=== PATIENT | female | born 1955 | race Asian ===

== ENCOUNTER 2022-08-04 17:51 | Inpatient (IN) | payer MEDICARE, OTHER ==
[~2022-08-04] VITALS: Ht 167.6 cm; Wt 90.1 kg
[~2022-08-04 17:51] MED LIST: GABA-1216 PO; LANS30CA55 PO; METO50 PO; SIMV-259 PO; WARF3TAB8 PO
[2022-08-04] MEDS ORDERED: ACETAMINOPHEN 325 MG TABLET PO ONE (18:15)
[2022-08-04 20:30] LABS: BASOPHILS % (AUTO) 0.4 % (0.0-2.0); EOSINOPHILS % (AUTO) 0.2 % (1.0-6.0); HEMATOCRIT 41.8 % (36-46); HEMOGLOBIN 13.6 g/dL (12.0-16.0); LYMPHOCYTES # (AUTO) 1.1 K/uL (1.0-4.8); LYMPHOCYTES % (AUTO) 8.3 % (22.0-44.0); MEAN CORPUSCULAR HEMOGLOBIN 28.8 pg (26.0-34.0); MEAN CORPUSCULAR HGB CONC 32.6 G/dL (31.0-37.0); MEAN CORPUSCULAR VOLUME 88 fL (80-100); MONOCYTES # (AUTO) 0.6 K/uL (0.1-1.0); MONOCYTES % (AUTO) 4.5 % (2.0-9.0); NEUTROPHILS # (AUTO) 11.3 K/uL (1.8-7.7); PLATELET COUNT (AUTO) 194 K/uL (150-450); RED BLOOD CELL COUNT(AUTO) 4.73 MIL/uL (4.00-5.20); RED CELL DISTRIBUTION WIDTH 14.6 % (11.5-14.5)
[2022-08-04 20:44] LABS: CALCIUM, TOTAL 9.4 mg/dL (8.8-10.5); CREATININE 0.95 mg/dL (0.60-1.30); POTASSIUM 4.2 mmol/L (3.5-5.1)
[2022-08-04 20:46] LABS: NEUTROPHILS % (AUTO) 86.6 % (40.0-70.0)
[2022-08-04 20:50] LABS: ALBUMIN 3.5 g/dL (3.4-5.0); BILIRUBIN,TOTAL 0.5 mg/dL (0.1-1.0); TOTAL PROTEIN, SERUM 8.2 g/dL (6.4-8.2)
[2022-08-04] MEDS ORDERED: ACETAMINOPHEN 325 MG TABLET PO PRN (21:30)
[2022-08-04] MEDS ORDERED: 0.9% SODIUM CHLORIDE 10 ML SYRINGE IVP PRN (21:30)
[2022-08-04] MEDS ORDERED: ONDANSETRON HCL 4 MG/2 ML VIAL IVP PRN ×2 (21:30→23:45)
[2022-08-04 21:34] LABS: COVID AG,FIA SOURCE NASOPHARYNGEAL
[2022-08-04 23:42] VITALS: BP 162/85
[2022-08-04] MEDS ORDERED: METOPROLOL TARTRATE 50 MG TABLET PO ONE (23:45)
[2022-08-04] MEDS ORDERED: ALBUTEROL SULFATE 2.5 MG/0.5 ML NEB SOLUTION NEB PRN (23:45)
[2022-08-04] MEDS ORDERED: MAGNESIUM HYDROXIDE SUSPENSION 30 ML UDCUP PO PRN (23:45)
[2022-08-04] MEDS ORDERED: ZOLPIDEM TARTRATE 5 MG TABLET PO PRN (23:45)
[2022-08-04] MEDS ORDERED: BISACODYL 10 MG RECTAL RECTAL SUPPOSITORY PR PRN (23:45)
[2022-08-04] MEDS ORDERED: HYDROCODONE/ACETAMINOPHEN 5-325 MG TABLET PO PRN (23:45)
[2022-08-04] MEDS ORDERED: MORPHINE SULFATE 2 MG/ML SYRINGE IVP PRN (23:45)
[2022-08-04] MEDS ORDERED: IPRATROPIUM BROMIDE 0.5 MG/2.5 ML NEB SOLUTION NEB PRN (23:45)
[2022-08-05] VITALS (8 sets, daily range): BP systolic 138–182; BP diastolic 81–98
[2022-08-05 00:13] LABS: INR 1.1 (0.9-1.1); PROTHROMBIN TIME 11.5 SEC (9.4-11.6)
[2022-08-05] MEDS: LABETALOL HCL 5 MG/ML 20 ML VIAL IVP PRN ×2 (01:44→16:07)
[2022-08-05] MEDS ORDERED: SODIUM CHLORIDE 0.9% 1,000 ML IV ONE (05:15)
[2022-08-05 07:50] LABS: APPEARANCE,URINE CLEAR (CLEAR); BILIRUBIN,URINE NEGATIVE (NEGATIVE); GLUCOSE, URINE (UA) NEGATIVE (NEGATIVE); LEUKOCYTE ESTERASE ,URINE NEGATIVE (NEGATIVE); NITRATE,URINE NEGATIVE (NEGATIVE); OCCULT BLOOD,URINE NEGATIVE (NEGATIVE); PH,URINE 7.5 (5.0-8.0); PROTEIN,URINE NEGATIVE (NEGATIVE); SPECIFIC GRAVITIY, URINE 1.014 (1.003-1.030); UROBILINOGEN,URINE <=1.0 mg/dL (<=1.0)
[2022-08-05] MEDS: HEPARIN SODIUM,PORCINE 5,000 UNITS/ML VIAL SQ SCH ×2 (08:00)
[2022-08-05 08:32] LABS: ALANINE AMINOTRANSFERASE 18 U/L (12-78); ALBUMIN 3.4 g/dL (3.4-5.0); ALKALINE PHOSPHATASE 92 U/L (46-116); ANION GAP 9 mmol/L (8-16); ASPARTATE AMINOTRANSFERASE 29 U/L (15-37); BILIRUBIN,TOTAL 0.6 mg/dL (0.1-1.0); CALCIUM, TOTAL 8.5 mg/dL (8.8-10.5); CARBON DIOXIDE 25 mmol/L (22-29); CHLORIDE 103 mmol/L (98-107); CREATININE 0.74 mg/dL (0.60-1.30); GLUCOSE,RANDOM 132 mg/dL (70-110); POTASSIUM 4.1 mmol/L (3.5-5.1); SODIUM SERUM 137 mmol/L (136-145); TOTAL PROTEIN, SERUM 7.9 g/dL (6.4-8.2); UREA NITROGEN, BLOOD 11 mg/dL (7-18)
[2022-08-05 08:35] LABS: GLOMERULAR FILTR. RATE CALC > 60 mL/min (>60)
[2022-08-05] MEDS ORDERED: METOPROLOL TARTRATE 50 MG TABLET PO SCH ×2 (09:00→21:00)
[2022-08-05] MEDS ORDERED: SIMVASTATIN 10 MG TABLET PO SCH (09:00)
[2022-08-05] MEDS: DOCUSATE SODIUM 100 MG CAPSULE PO SCH ×2 (09:00→20:38)
[2022-08-05] MEDS ORDERED: GABAPENTIN 300 MG CAPSULE PO SCH (09:00)
[2022-08-05 09:17] LABS: BASOPHILS % (AUTO) 0.8 % (0.0-2.0); EOSINOPHILS % (AUTO) 0.4 % (1.0-6.0); HEMATOCRIT 40.4 % (36-46); HEMOGLOBIN 13.3 g/dL (12.0-16.0); LYMPHOCYTES # (AUTO) 1.5 K/uL (1.0-4.8); LYMPHOCYTES % (AUTO) 18.7 % (22.0-44.0); MEAN CORPUSCULAR HEMOGLOBIN 29.3 pg (26.0-34.0); MEAN CORPUSCULAR HGB CONC 32.9 G/dL (31.0-37.0); MEAN CORPUSCULAR VOLUME 89 fL (80-100); MONOCYTES # (AUTO) 0.6 K/uL (0.1-1.0); MONOCYTES % (AUTO) 7.1 % (2.0-9.0); NEUTROPHILS # (AUTO) 5.8 K/uL (1.8-7.7); PLATELET COUNT (AUTO) 209 K/uL (150-450); RED BLOOD CELL COUNT(AUTO) 4.55 MIL/uL (4.00-5.20); RED CELL DISTRIBUTION WIDTH 14.3 % (11.5-14.5)
[2022-08-05] MEDS ORDERED: RIVA20TA PO (10:40)
[2022-08-05] MEDS ORDERED: LISI-893 PO (10:40)
[2022-08-05] MEDS ORDERED: ATOR10TA PO (10:40)
[2022-08-05] MEDS ORDERED: LEVE500T20 PO (10:40)
[2022-08-05] MEDS: LISINOPRIL 10 MG TABLET PO SCH (11:29)
[2022-08-05] MEDS: LevETIRAcetam 500 MG TABLET PO SCH ×2 (11:29→20:38)
[2022-08-05] MEDS: PANTOPRAZOLE SODIUM 40 MG/VIAL IVP SCH (11:30)
[2022-08-05] MEDS: ACETAMINOPHEN 325 MG TABLET PO PRN ×2 (11:41→16:53)
[2022-08-05] MEDS: RIVAROXABAN 10 MG TABLET PO SCH (17:55)
[2022-08-05] MEDS ORDERED: RIVAROXABAN 20 MG TABLET PO SCH (18:00)
[2022-08-05] MEDS: ATORVASTATIN CALCIUM 10 MG TABLET PO SCH (20:38)
[2022-08-06] MEDS: ACETAMINOPHEN 325 MG TABLET PO PRN ×3 (00:17→17:11)
[2022-08-06 04:00] VITALS: BP 152/81
[2022-08-06] MEDS: PANTOPRAZOLE SODIUM 40 MG/VIAL IVP SCH (08:25)
[2022-08-06] MEDS: LevETIRAcetam 500 MG TABLET PO SCH ×2 (08:37→20:19)
[2022-08-06] MEDS: DOCUSATE SODIUM 100 MG CAPSULE PO SCH ×2 (08:37→20:19)
[2022-08-06] MEDS: LISINOPRIL 10 MG TABLET PO SCH (08:38)
[2022-08-06 09:54] VITALS: BP 182/92
[2022-08-06] MEDS: RIVAROXABAN 10 MG TABLET PO SCH (17:11)
[2022-08-06] MEDS: ATORVASTATIN CALCIUM 10 MG TABLET PO SCH (20:19)
[2022-08-06 20:21] VITALS: BP 143/75
[2022-08-07 04:50] VITALS: BP 154/76
[2022-08-07 07:23] VITALS: BP 169/70
[2022-08-07] MEDS: LISINOPRIL 10 MG TABLET PO SCH (08:31)
[2022-08-07] MEDS: LevETIRAcetam 500 MG TABLET PO SCH ×2 (08:31→20:01)
[2022-08-07] MEDS: DOCUSATE SODIUM 100 MG CAPSULE PO SCH ×2 (08:31→20:01)
[2022-08-07] MEDS: LABETALOL HCL 5 MG/ML 20 ML VIAL IVP PRN ×2 (08:33→21:45)
[2022-08-07] MEDS: PANTOPRAZOLE SODIUM 40 MG DR TABLET PO SCH (12:35)
[2022-08-07 16:44] VITALS: BP 158/94
[2022-08-07] MEDS: RIVAROXABAN 10 MG TABLET PO SCH (17:53)
[2022-08-07] MEDS: ATORVASTATIN CALCIUM 10 MG TABLET PO SCH (20:01)
[2022-08-07 21:13] VITALS: BP 167/78
[2022-08-08 04:53] VITALS: BP 136/77
[2022-08-08] MEDS: PANTOPRAZOLE SODIUM 40 MG DR TABLET PO SCH (05:31)
[2022-08-08 08:23] VITALS: BP 137/73
[2022-08-08] MEDS: LISINOPRIL 10 MG TABLET PO SCH (08:23)
[2022-08-08] MEDS: DOCUSATE SODIUM 100 MG CAPSULE PO SCH ×2 (08:23→20:05)
[2022-08-08] MEDS: LevETIRAcetam 500 MG TABLET PO SCH ×2 (08:23→20:05)
[2022-08-08] MEDS ORDERED: ACET-2247 PO (15:55)
[2022-08-08] MEDS ORDERED: DOCU-385 PO (15:55)
[2022-08-08] MEDS ORDERED: PANT-31 PO (15:55)
[2022-08-08 16:29] VITALS: BP 151/92
[2022-08-08 16:46] LABS: COVID AG,FIA SOURCE NASAL SWAB
[2022-08-08] MEDS ORDERED: RIVAROXABAN 20 MG TABLET PO SCH (18:00)
[2022-08-08] MEDS: ATORVASTATIN CALCIUM 10 MG TABLET PO SCH (20:05)
[2022-08-08 20:07] VITALS: BP 135/62
== END 2022-08-08 20:31 | DRG 563 ==
LOC: EMS 17:53 → 6S 21:44
PROVIDERS: ADMIT Hospitalist; ATTEND Hospitalist
PROC: 2W3RX1Z Immobilization of Left Lower Leg using Splint (ICD-10-PCS; principal; 2022-08-04)
DX: S82.65XA Nondisplaced fracture of lateral malleolus of left fibula, initial encounter for closed fracture (principal); I69.954 Hemiplegia and hemiparesis following unspecified cerebrovascular disease affecting left non-dominant side; I10 Essential (primary) hypertension; K21.9 Gastro-esophageal reflux disease without esophagitis; D72.829 Elevated white blood cell count, unspecified; Z20.822 Contact with and (suspected) exposure to COVID-19; X58.XXXA Exposure to other specified factors, initial encounter; Y93.89 Activity, other specified; Y92.89 Other specified places as the place of occurrence of the external cause; Y99.8 Other external cause status
CPT/HCPCS: 29515; 80053; 81003; 85025; 85610; 87081; 97110; 97112; 97162; 97166; 97530; 99285; C9113; G0378; J1644; J3490; J7030